=== PATIENT | male | born 1965 | race Caucasian/White ===

== ENCOUNTER → 2023-10-30 07:11 | Outpatient (REF) | payer BC, SELFPAY | LOC: RAD 07:11 | PROVIDERS: ATTENDING PHYSICIAN Nurse Practitioner Family | DX: M54.50 Low back pain, unspecified (principal) | CPT/HCPCS: 72110 ==

== ENCOUNTER → 2024-07-31 07:49 | Outpatient (REF) | payer BC, SELFPAY | LOC: RCS 07:49 | PROVIDERS: ATTENDING PHYSICIAN Physician Assistant Medical | DX: R06.02 Shortness of breath (principal); R42 Dizziness and giddiness; M54.2 Cervicalgia | CPT/HCPCS: 93017; 71046; 72050 ==

== ENCOUNTER → 2024-08-14 07:09 | Outpatient (REF) | payer BC, SELFPAY | LOC: RCS 07:09 | PROVIDERS: ATTENDING PHYSICIAN Physician Assistant Medical; FAMILY PHYSICIAN Family Medicine | DX: R06.02 Shortness of breath (principal) | CPT/HCPCS: 93306 ==